=== PATIENT | male | born 1955 | race Two or more races ===

== ENCOUNTER 2023-04-05 00:11 | Inpatient (IN) | payer MEDICARE, OTHER ==
[~2023-04-05] VITALS: Ht 182.9 cm; Wt 88.6 kg
[2023-04-05] MEDS ORDERED: AMPH20CA3 PO (06:23)
[2023-04-05] MEDS ORDERED: LOSA50TA39 PO (06:23)
[2023-04-05] MEDS ORDERED: TAMS-12 PO (06:23)
[2023-04-05] MEDS ORDERED: OXYC-128 PO (06:23)
[2023-04-05] MEDS ORDERED: MORP60TA4 PO (06:23)
[2023-04-05] MEDS ORDERED: TEST75GE TP (06:23)
[2023-04-05] MEDS ORDERED: ALPR1TAB2 PO (06:23)
[2023-04-05] MEDS ORDERED: OFLO5DRO LEFTEYE (06:23)
[2023-04-05] MEDS ORDERED: OMEP40CA21 PO (06:23)
[2023-04-05] MEDS ORDERED: HYDR4TAB4 PO (06:23)
[2023-04-05] MEDS ORDERED: CARI350T PO (06:23)
[2023-04-05] MEDS ORDERED: LEVO200T8 PO (06:23)
[2023-04-05] MEDS ORDERED: CLON0.1T PO (06:23)
[2023-04-05] MEDS ORDERED: LEVE500T9 PO (06:23)
[2023-04-05] MEDS ORDERED: ZOLPIDEM TARTRATE 5 MG TABLET PO PRN (06:30)
[2023-04-05] MEDS ORDERED: ACETAMINOPHEN 325 MG TABLET PO PRN (06:30)
[2023-04-05] MEDS ORDERED: MAG HYDROX/AL HYDROX/SIMETH 30 ML UDC PO PRN (06:30)
[2023-04-05] MEDS ORDERED: Z GUARD REMEDY 4 OZ OINT TP PRN (06:30)
[2023-04-05] MEDS ORDERED: ONDANSETRON HCL/PF 4 MG/2 ML VIAL IVP PRN (06:30)
[2023-04-05 06:51] VITALS: BP 118/88; TEMP 97.9; O2SAT 99
[2023-04-05 08:00] VITALS: BP 128/79; TEMP 98.8; O2SAT 98
[2023-04-05] MEDS ORDERED: ENOXAPARIN SODIUM 40 MG/0.4 ML DISP.SYRIN SQ SCH (08:00)
[2023-04-05] MEDS: PANTOPRAZOLE 40 MG TABLET.DR PO SCH (08:08)
[2023-04-05] MEDS: MORPHINE SULFATE INJ 4 MG/ML DISP.SYRIN IV PRN ×4 (08:09→23:30)
[2023-04-05] MEDS: CEFEPIME 1 GM in IV D5W 50 ML IV SCH ×2 (10:26→20:32)
[2023-04-05] MEDS: VANCOMYCIN 1 GM in IV D5W 250 ML IV SCH ×2 (11:11→21:52)
[2023-04-05 12:09] LABS: BASOPHILS % (AUTO) 0.8 % (0.0-2.0); EOSINOPHILS # (AUTO) 0.3 K/uL (0.0-0.7); EOSINOPHILS % (AUTO) 5.6 % (0.0-6.0); HEMATOCRIT 33 % (39-51); HEMOGLOBIN 10.2 g/dL (13.5-17.5); LYMPHOCYTES # (AUTO) 1.1 K/uL (0.8-4.8); LYMPHOCYTES % (AUTO) 20.9 % (20.0-44.0); MEAN CORPUSCULAR HEMOGLOBIN 23 PG (26.0-33.0); MEAN CORPUSCULAR HGB CONC 32 g/dl (31.0-36.0); MEAN CORPUSCULAR VOLUME 72 fL (80-96); MONOCYTES # (AUTO) 0.4 K/uL (0.1-1.30); MONOCYTES % (AUTO) 7.2 % (2.0-12.0); NEUTROPHILS # (AUTO) 3.5 K/uL (1.8-8.9); NEUTROPHILS % (AUTO) 65.5 % (43.0-81.0); PLATELET COUNT (AUTO) 356 K/uL (150-450); RED BLOOD CELL COUNT(AUTO) 4.54 MIL/uL (4.5-6.0); RED CELL DISTRIBUTION WIDTH 18.3 % (11.5-15.0); WHITE BLOOD COUNT (AUTO) 5.3 K/uL (4.3-11.0)
[2023-04-05 12:19] LABS: INR 1.05 (0.91-1.10); PARTIAL THROMBOPLASTIN TIME 28.8 SEC (24.3-34.3); PROTHROMBIN TIME 11.1 SECS (9.2-11.1)
[2023-04-05 12:57] LABS: ALBUMIN 2.9 g/dL (3.4-5.0); BILIRUBIN,TOTAL 0.2 mg/dL (0.2-1.0); CREATININE 0.8 mg/dL (0.6-1.3); POTASSIUM 4.2 mmol/L (3.5-5.1); TOTAL PROTEIN, SERUM 7.4 g/dL (6.4-8.2)
[2023-04-05] MEDS: MAGNESIUM HYDROXIDE 30 ML UDC PO PRN ×2 (13:49→23:43)
[2023-04-05] MEDS ORDERED: ALPRAZOLAM 0.25 MG TABLET PO PRN (14:00)
[2023-04-05 14:59] LABS: THYROID STIMULATING HORMONE 11.08 uIU/mL (0.358-3.74)
[2023-04-05 16:00] VITALS: BP 142/76; TEMP 98.4; O2SAT 96
[2023-04-05] MEDS: LOSARTAN POTASSIUM 50 MG TABLET PO SCH (16:55)
[2023-04-05] MEDS ORDERED: LEVETIRACETAM (250 MG) 250 MG TABLET PO SCH (17:00)
[2023-04-05 20:00] VITALS: BP 134/80; TEMP 98.2; O2SAT 95
[2023-04-06] MEDS: MORPHINE SULFATE INJ 4 MG/ML DISP.SYRIN IV PRN ×2 (03:51→11:16)
[2023-04-06] MEDS: PANTOPRAZOLE 40 MG TABLET.DR PO SCH (07:30)
[2023-04-06] MEDS ORDERED: ANESTHESIA TRAY IN PYXIS 1 EA TRAY MC ONE (07:50)
[2023-04-06 08:00] VITALS: BP 96/59; TEMP 97.9; O2SAT 98
[2023-04-06] MEDS: LEVOTHYROXINE SODIUM 100 MCG TABLET PO SCH (08:02)
[2023-04-06] MEDS: TAMSULOSIN 0.4 MG CAP.SR.24H PO SCH (08:02)
[2023-04-06] MEDS: CEFEPIME 1 GM in IV D5W 50 ML IV SCH ×2 (08:04→20:55)
[2023-04-06 08:12] LABS: BASOPHILS % (AUTO) 0.9 % (0.0-2.0); EOSINOPHILS # (AUTO) 0.3 K/uL (0.0-0.7); HEMATOCRIT 29 % (39-51); HEMOGLOBIN 9.3 g/dL (13.5-17.5); LYMPHOCYTES # (AUTO) 1.2 K/uL (0.8-4.8); LYMPHOCYTES % (AUTO) 29.2 % (20.0-44.0); MEAN CORPUSCULAR HEMOGLOBIN 22 PG (26.0-33.0); MEAN CORPUSCULAR HGB CONC 32 g/dl (31.0-36.0); MEAN CORPUSCULAR VOLUME 70 fL (80-96); MONOCYTES # (AUTO) 0.3 K/uL (0.1-1.30); MONOCYTES % (AUTO) 7.2 % (2.0-12.0); NEUTROPHILS # (AUTO) 2.2 K/uL (1.8-8.9); NEUTROPHILS % (AUTO) 55.7 % (43.0-81.0); PLATELET COUNT (AUTO) 324 K/uL (150-450); RED CELL DISTRIBUTION WIDTH 17.5 % (11.5-15.0)
[2023-04-06] MEDS: LOSARTAN POTASSIUM 50 MG TABLET PO SCH ×3 (08:42→17:44)
[2023-04-06] MEDS: LEVETIRACETAM (500MG) 500 MG in IV NS 0.9% 100 ML IV SCH ×2 (08:43→21:13)
[2023-04-06] MEDS: IV NS 0.9% 1,000 ML IV PRN (08:44)
[2023-04-06 08:47] LABS: CALCIUM, SERUM 8.6 mg/dL (8.5-10.1); CREATININE 0.8 mg/dL (0.6-1.3); MAGNESIUM 2.2 mg/dL (1.8-2.4); PHOSPHORUS 4.4 mg/dL (2.5-4.9); POTASSIUM 3.9 mmol/L (3.5-5.1)
[2023-04-06] MEDS ORDERED: POLYMYXIN B SULFATE 500,000 UNITS ONE ×3 (09:31→11:30)
[2023-04-06] MEDS ORDERED: LIDOCAINE HCL/MPF 1% 30 ML VIAL IJ ONE (09:32)
[2023-04-06] MEDS ORDERED: HEMOSTATIC MATRIX 8 ML 1 EACH PAD MC ONE (09:32)
[2023-04-06] MEDS ORDERED: VANCOMYCIN 1 GM VIAL ONE (09:32)
[2023-04-06] MEDS ORDERED: METHYLENE BLUE 10 ML VIAL ONE (09:32)
[2023-04-06] MEDS ORDERED: BUPIVACAINE 0.5 % PF 150 MG/30 ML VIAL ONE (09:32)
[2023-04-06] MEDS ORDERED: BUPIVACAINE MPF 0.5% W/EPI INJ 30 ML VIAL ONE (09:32)
[2023-04-06] MEDS ORDERED: CEFAZOLIN 1 GM ONE (09:32)
[2023-04-06] MEDS ORDERED: ALBUTEROL FS 2.5 MG/3 ML VIAL.NEB NEB ONE (10:00)
[2023-04-06] MEDS ORDERED: PANTOPRAZOLE 40 MG VIAL IV ONE (10:00)
[2023-04-06] MEDS: VANCOMYCIN 1 GM in IV D5W 250 ML IV SCH ×2 (11:16→22:38)
[2023-04-06] MEDS ORDERED: HYDROGEN PEROXIDE 480 ML BOTTLE ONE (11:30)
[2023-04-06] MEDS ORDERED: POLYMYXIN B SULFATE 500,000 UNITS VIAL IJ ONE (11:32)
[2023-04-06] MEDS ORDERED: HYDROGEN PEROXIDE 480 ML BOTTLE TP ONE (11:32)
[2023-04-06] MEDS ORDERED: KETAMINE HCL (500MG/10ML) 50 MG/ML VIAL ONE (11:48)
[2023-04-06] MEDS ORDERED: FENTANYL PF 100MCG/2ML AMPUL ONE (11:48)
[2023-04-06] MEDS ORDERED: MIDAZOLAM HCL 2 MG/2ML VIAL ONE (11:49)
[2023-04-06] MEDS ORDERED: FAMOTIDINE/PF INJ 20 MG/2 ML VIAL IV ONE (11:49)
[2023-04-06] MEDS ORDERED: ROCURONIUM BROMIDE 50 MG/5 ML ONE (11:49)
[2023-04-06] MEDS ORDERED: PROPOFOL 20 ML IV ONE (11:49)
[2023-04-06] MEDS ORDERED: PROPOFOL 100 ML ONE (11:50)
[2023-04-06] MEDS ORDERED: Magnesium 1 GM/2 ML VIAL ONE (11:50)
[2023-04-06] MEDS ORDERED: SEVOFLURANE 250 ML BOTTLE IH ONE (11:50)
[2023-04-06] MEDS ORDERED: FLUMAZENIL 0.5 MG VIAL ONE (14:29)
[2023-04-06 16:00] VITALS: BP 103/56; TEMP 97.3; O2SAT 98
[2023-04-06] MEDS ORDERED: HYDROMORPHONE 1 MG/1 ML DISP.SYRIN IV PRN (16:30)
[2023-04-06] MEDS: HYDROMORPHONE 1 MG/1 ML DISP.SYRIN IV PRN ×2 (18:20→23:38)
[2023-04-06 20:00] VITALS: BP 135/74; TEMP 97.6; O2SAT 96
[2023-04-07] MEDS: HYDROMORPHONE 1 MG/1 ML DISP.SYRIN IV PRN ×5 (04:01→20:23)
[2023-04-07] MEDS: IV NS 0.9% 1,000 ML IV PRN ×3 (04:13→20:29)
[2023-04-07 07:30] VITALS: BP 152/82; TEMP 99.1; O2SAT 99
[2023-04-07 07:35] LABS: BASOPHILS % (AUTO) 0.7 % (0.0-2.0); EOSINOPHILS # (AUTO) 0.3 K/uL (0.0-0.7); EOSINOPHILS % (AUTO) 4.8 % (0.0-6.0); HEMATOCRIT 27 % (39-51); HEMOGLOBIN 8.8 g/dL (13.5-17.5); LYMPHOCYTES # (AUTO) 0.9 K/uL (0.8-4.8); LYMPHOCYTES % (AUTO) 15.9 % (20.0-44.0); MEAN CORPUSCULAR HEMOGLOBIN 23 PG (26.0-33.0); MEAN CORPUSCULAR HGB CONC 32 g/dl (31.0-36.0); MEAN CORPUSCULAR VOLUME 71 fL (80-96); MONOCYTES # (AUTO) 0.4 K/uL (0.1-1.30); MONOCYTES % (AUTO) 6.8 % (2.0-12.0); NEUTROPHILS # (AUTO) 4.2 K/uL (1.8-8.9); NEUTROPHILS % (AUTO) 71.8 % (43.0-81.0); PLATELET COUNT (AUTO) 308 K/uL (150-450); RED BLOOD CELL COUNT(AUTO) 3.87 MIL/uL (4.5-6.0); RED CELL DISTRIBUTION WIDTH 17.7 % (11.5-15.0); WHITE BLOOD COUNT (AUTO) 5.8 K/uL (4.3-11.0)
[2023-04-07 07:58] LABS: CALCIUM, SERUM 8.2 mg/dL (8.5-10.1); CREATININE 0.6 mg/dL (0.6-1.3); MAGNESIUM 1.9 mg/dL (1.8-2.4); PHOSPHORUS 4.4 mg/dL (2.5-4.9); POTASSIUM 4.1 mmol/L (3.5-5.1)
[2023-04-07] MEDS: LEVOTHYROXINE SODIUM 100 MCG TABLET PO SCH (08:03)
[2023-04-07] MEDS: TAMSULOSIN 0.4 MG CAP.SR.24H PO SCH (08:03)
[2023-04-07] MEDS: LOSARTAN POTASSIUM 50 MG TABLET PO SCH ×2 (08:04→16:51)
[2023-04-07] MEDS: PANTOPRAZOLE 40 MG TABLET.DR PO SCH (08:04)
[2023-04-07] MEDS: LEVETIRACETAM (500MG) 500 MG in IV NS 0.9% 100 ML IV SCH (08:07)
[2023-04-07] MEDS: CEFEPIME 1 GM in IV D5W 50 ML IV SCH ×2 (08:57→20:23)
[2023-04-07] MEDS: VANCOMYCIN 1 GM in IV D5W 250 ML IV SCH ×2 (09:52→21:08)
[2023-04-07] MEDS: HYDROCODONE/APAP 5/325MG TABLET PO PRN (12:37)
[2023-04-07 16:00] VITALS: BP 145/86; TEMP 99.7; O2SAT 99
[2023-04-07 20:00] VITALS: BP 134/61; TEMP 99; O2SAT 95
[2023-04-07] MEDS: LEVETIRACETAM (250 MG) 250 MG TABLET PO SCH (20:22)
[2023-04-08] MEDS: HYDROMORPHONE 1 MG/1 ML DISP.SYRIN IV PRN ×9 (00:16→20:50)
[2023-04-08] MEDS: IV NS 0.9% 1,000 ML IV PRN (05:14)
[2023-04-08 07:25] LABS: CALCIUM, SERUM 8.3 mg/dL (8.5-10.1); CREATININE 0.5 mg/dL (0.6-1.3); POTASSIUM 4.6 mmol/L (3.5-5.1)
[2023-04-08 07:30] VITALS: BP 146/71; TEMP 98.5; O2SAT 98
[2023-04-08] MEDS: TAMSULOSIN 0.4 MG CAP.SR.24H PO SCH (08:12)
[2023-04-08] MEDS: PANTOPRAZOLE 40 MG TABLET.DR PO SCH (08:12)
[2023-04-08] MEDS: LEVETIRACETAM (250 MG) 250 MG TABLET PO SCH ×2 (08:12→20:49)
[2023-04-08] MEDS: LEVOTHYROXINE SODIUM 100 MCG TABLET PO SCH (08:12)
[2023-04-08] MEDS: LOSARTAN POTASSIUM 50 MG TABLET PO SCH ×2 (08:54→16:36)
[2023-04-08] MEDS: CEFEPIME 1 GM in IV D5W 50 ML IV SCH ×2 (08:59→20:49)
[2023-04-08] MEDS: VANCOMYCIN 1 GM in IV D5W 250 ML IV SCH ×2 (09:49→22:13)
[2023-04-08 16:00] VITALS: BP 144/80; TEMP 98.6; O2SAT 97
[2023-04-08 20:00] VITALS: BP 139/78; TEMP 98.7; O2SAT 96
[2023-04-09] MEDS: HYDROMORPHONE 1 MG/1 ML DISP.SYRIN IV PRN ×9 (00:30→20:20)
[2023-04-09] MEDS: IV NS 0.9% 1,000 ML IV PRN ×2 (01:15→13:31)
[2023-04-09 07:09] LABS: BASOPHILS % (AUTO) 0.7 % (0.0-2.0); EOSINOPHILS # (AUTO) 0.3 K/uL (0.0-0.7); EOSINOPHILS % (AUTO) 6.3 % (0.0-6.0); HEMATOCRIT 27 % (39-51); HEMOGLOBIN 8.8 g/dL (13.5-17.5); LYMPHOCYTES # (AUTO) 1.2 K/uL (0.8-4.8); LYMPHOCYTES % (AUTO) 22.4 % (20.0-44.0); MEAN CORPUSCULAR HEMOGLOBIN 23 PG (26.0-33.0); MEAN CORPUSCULAR HGB CONC 32 g/dl (31.0-36.0); MEAN CORPUSCULAR VOLUME 70 fL (80-96); MONOCYTES # (AUTO) 0.4 K/uL (0.1-1.30); MONOCYTES % (AUTO) 7.7 % (2.0-12.0); NEUTROPHILS # (AUTO) 3.4 K/uL (1.8-8.9); NEUTROPHILS % (AUTO) 62.9 % (43.0-81.0); PLATELET COUNT (AUTO) 291 K/uL (150-450); RED BLOOD CELL COUNT(AUTO) 3.92 MIL/uL (4.5-6.0); RED CELL DISTRIBUTION WIDTH 18.1 % (11.5-15.0); WHITE BLOOD COUNT (AUTO) 5.5 K/uL (4.3-11.0)
[2023-04-09 07:30] VITALS: BP 118/66; TEMP 98.2; O2SAT 98
[2023-04-09 07:31] LABS: CALCIUM, SERUM 8.7 mg/dL (8.5-10.1); CREATININE 0.6 mg/dL (0.6-1.3); MAGNESIUM 1.9 mg/dL (1.8-2.4); PHOSPHORUS 4.8 mg/dL (2.5-4.9); POTASSIUM 3.9 mmol/L (3.5-5.1)
[2023-04-09] MEDS: PANTOPRAZOLE 40 MG TABLET.DR PO SCH (07:45)
[2023-04-09] MEDS: CEFEPIME 1 GM in IV D5W 50 ML IV SCH ×2 (09:12→22:10)
[2023-04-09] MEDS: TAMSULOSIN 0.4 MG CAP.SR.24H PO SCH (09:13)
[2023-04-09] MEDS: LOSARTAN POTASSIUM 50 MG TABLET PO SCH ×2 (09:13→17:40)
[2023-04-09] MEDS: LEVOTHYROXINE SODIUM 100 MCG TABLET PO SCH (09:14)
[2023-04-09] MEDS: LEVETIRACETAM (250 MG) 250 MG TABLET PO SCH ×2 (09:14→22:09)
[2023-04-09] MEDS: VANCOMYCIN 1.25 GM in IV D5W 250 ML IV SCH ×2 (10:46→22:58)
[2023-04-09 10:47] LABS: ANISOCYTOSIS 1+; EOSINOPHILS % (MANUAL) 5 % (0-4); LYMPHOCYTES % (MANUAL) 15 % (16-48); MONOCYTES % (MANUAL) 8 % (0-11.0); NEUTROPHILS % (MANUAL) 72 (42-76); PLATELET ESTIMATE ADEQUATE
[2023-04-09] MEDS: SOD FERRIC GLUC 125 MG in IV NS 0.9% 100 ML IV SCH (15:42)
[2023-04-09 16:00] VITALS: BP 122/68; TEMP 98.2; O2SAT 96
[2023-04-09] MEDS: HYDROCODONE/APAP 5/325MG TABLET PO PRN ×2 (18:15→22:30)
[2023-04-09 22:07] VITALS: BP 125/83; TEMP 97.3; O2SAT 95
[2023-04-10] MEDS: HYDROMORPHONE 1 MG/1 ML DISP.SYRIN IV PRN ×4 (01:30→12:46)
[2023-04-10] MEDS: HYDROCODONE/APAP 5/325MG TABLET PO PRN ×3 (04:00→15:06)
[2023-04-10 07:30] VITALS: BP 117/72; TEMP 98.2; O2SAT 94
[2023-04-10 08:45] LABS: CALCIUM, SERUM 8.6 mg/dL (8.5-10.1); CREATININE 0.6 mg/dL (0.6-1.3); POTASSIUM 3.9 mmol/L (3.5-5.1)
[2023-04-10] MEDS: LEVOTHYROXINE SODIUM 100 MCG TABLET PO SCH (09:21)
[2023-04-10] MEDS: TAMSULOSIN 0.4 MG CAP.SR.24H PO SCH (09:21)
[2023-04-10] MEDS: LEVETIRACETAM (250 MG) 250 MG TABLET PO SCH (09:21)
[2023-04-10] MEDS: LOSARTAN POTASSIUM 50 MG TABLET PO SCH ×2 (09:22→17:39)
[2023-04-10] MEDS: CEFEPIME 1 GM in IV D5W 50 ML IV SCH (09:22)
[2023-04-10] MEDS: PANTOPRAZOLE 40 MG TABLET.DR PO SCH (09:26)
[2023-04-10] MEDS: IV NS 0.9% 1,000 ML IV PRN (09:38)
[2023-04-10] MEDS: VANCOMYCIN 1.25 GM in IV D5W 250 ML IV SCH (10:36)
[2023-04-10] MEDS: SOD FERRIC GLUC 125 MG in IV NS 0.9% 100 ML IV SCH (14:36)
[2023-04-10 16:00] VITALS: BP 130/90; TEMP 98.8; O2SAT 97
[2023-04-10] MEDS ORDERED: HYDROCODONE/APAP 10/325MG TABLET PO PRN (17:00)
[2023-04-10] MEDS ORDERED: GABAPENTIN 300 MG CAPSULE PO SCH (17:00)
[2023-04-10 17:39] VITALS: BP 130/90
== END 2023-04-10 18:55 | DRG 857 ==
LOC: MED 05:44
PROVIDERS: ADMIT Nurse Practitioner Family; ATTEND Nurse Practitioner Family
PROC: 0PB30ZZ Excision of Cervical Vertebra, Open Approach (ICD-10-PCS; principal; 2023-04-05)
PROC: 0RJ10ZZ Inspection of Cervical Vertebral Joint, Open Approach (ICD-10-PCS; 2023-04-06)
DX: T81.49XA Infection following a procedure, other surgical site, initial encounter (principal); T81.31XA Disruption of external operation (surgical) wound, not elsewhere classified, initial encounter; T84.038A Mechanical loosening of other internal prosthetic joint, initial encounter; S11.89XA Other open wound of other specified part of neck, initial encounter; J44.9 Chronic obstructive pulmonary disease, unspecified; G89.4 Chronic pain syndrome; I10 Essential (primary) hypertension; I25.2 Old myocardial infarction; K21.9 Gastro-esophageal reflux disease without esophagitis; R73.03 Prediabetes; Z79.891 Long term (current) use of opiate analgesic; D53.9 Nutritional anemia, unspecified; Y83.8 Other surgical procedures as the cause of abnormal reaction of the patient, or of later complication, without mention of misadventure at the time of the procedure; Y92.009 Unspecified place in unspecified non-institutional (private) residence as the place of occurrence of the external cause; Z20.822 Contact with and (suspected) exposure to COVID-19
CPT/HCPCS: 36415; 36569; 71045-TC; 72050-TC; 80048-TC; 80053-TC; 80061-TC; 80202-TC; 82728-TC; 82962-TC; 83540-TC; 83735-TC; 84100-TC; 84439-TC; 84443-TC; 84481; 85025-TC; 85610-TC; 85730-TC; 86850-TC; A4217; A4223; A6253; C1751; C9113; G0378; J0330; J0690; J0692; J1100; J1170; J1650; J1953; J2250; J2270; J2405; J2704; J2765; J2916; J3010; J3370; J3475; J3490; J7030; J7040; J7050; J7060; Q9968

== ENCOUNTER 2023-05-16 18:38 | Emergency (ER) | payer MEDICARE, OTHER ==
[~2023-05-16] VITALS: Ht 182.9 cm; Wt 93.0 kg
[~2023-05-16 18:38] MED LIST: ALPR1TAB2 PO; AMPH20CA3 PO; CARI350T PO; CLON0.1T PO; HYDR4TAB4 PO; LEVE500T9 PO; LEVO200T8 PO; LOSA50TA39 PO; MORP60TA4 PO; OFLO5DRO LEFTEYE; OMEP40CA21 PO; OXYC-128 PO; TAMS-12 PO; TEST75GE TP
[2023-05-16 19:07] VITALS: BP 147/73; TEMP 98.7; O2SAT 100
== END 2023-05-16 22:57 ==
LOC: ER 18:45
DX: S09.90XA Unspecified injury of head, initial encounter (principal); J44.9 Chronic obstructive pulmonary disease, unspecified; Z79.899 Other long term (current) drug therapy; W22.8XXA Striking against or struck by other objects, initial encounter; Y93.89 Activity, other specified; Y92.89 Other specified places as the place of occurrence of the external cause; Y99.8 Other external cause status
CPT/HCPCS: 70450-TC; 72125-TC